=== PATIENT | female | born 1955 | race Caucasian/White ===

== ENCOUNTER 2016-11-15 10:12 | Day surgery (SDC) | payer MEDICARE, OTHER ==
[~2016-11-15] VITALS: Ht 170.2 cm; Wt 73.5 kg
[~2016-11-15 10:12] MED LIST: ATENOLOL50 MG PO; COZAAR100 MG PO; NORCO 325 MG-51 TAB; TEMAZEPAM15 MG PO; ZITHROMAX 250M250 MG PO
[2016-11-15 11:50] VITALS: BP 126/59; PULSE 63; TEMP 97.8
[2016-11-15] MEDS ORDERED: PLAVIX 75MG TAB75 MG PO (12:01)
[2016-11-15] MEDS ORDERED: ASPIRIN E.C. 8181 MG PO (12:01)
[2016-11-15] MEDS ORDERED: STIOLTO RESPIMAT4 GM IH (12:02)
[2016-11-15] MEDS ORDERED: VALIUM 10MG10 MG/TAB PO (12:04)
[2016-11-15] MEDS ORDERED: ZOLOFT 100MG100 MG PO (12:06)
[2016-11-15] MEDS ORDERED: TENORMIN100 MG PO (12:06)
[2016-11-15] MEDS ORDERED: NORCO 325 MG-101 TAB PO (12:07)
[2016-11-15] MEDS ORDERED: NORVASC 10MG10 MG PO (12:08)
[2016-11-15 14:40] VITALS: BP 114/62; PULSE 73; TEMP 98.4
[2016-11-15 14:55] VITALS: BP 121/65; PULSE 70
[2016-11-15 15:10] VITALS: BP 111/59; PULSE 73
[2016-11-15] MEDS ORDERED: PHENERGAN 25 TA25 MG PO (15:20)
[2016-11-15] MEDS ORDERED: CEPHALEXIN500 M1 PO (15:21)
[2016-11-15] MEDS ORDERED: NORCO 325 MG-7.1 TAB PO (15:21)
[2016-11-15 15:25] VITALS: BP 115/56; PULSE 71
[2016-11-15 15:55] VITALS: BP 119/71; PULSE 71
== END 2016-11-15 16:30 | disposition home or self-care (01) ==
LOC: SDCO 10:12
DX: S83.281A Other tear of lateral meniscus, current injury, right knee, initial encounter (principal); M94.261 Chondromalacia, right knee; M17.12 Unilateral primary osteoarthritis, left knee; J44.9 Chronic obstructive pulmonary disease, unspecified; I10 Essential (primary) hypertension; Z86.19 Personal history of other infectious and parasitic diseases; F17.200 Nicotine dependence, unspecified, uncomplicated; Z79.82 Long term (current) use of aspirin; Z79.899 Other long term (current) drug therapy; Z79.02 Long term (current) use of antithrombotics/antiplatelets
CPT/HCPCS: J0171; J0360; J0690; J1100; J1885; J2405; J2704; J3010; J7120

== ENCOUNTER → 2017-03-06 | Outpatient (CLI) | payer MEDICARE, OTHER ==
[~2017-03-06] MED LIST changes: +ASPIRIN E.C. 8181 MG PO; +CEPHALEXIN500 M1 PO; +CYMBALTA 30MG30 MG PO; +NORCO 325 MG-101 TAB PO; +NORCO 325 MG-7.1 TAB PO; +NORVASC 10MG10 MG PO; +PHENERGAN 25 TA25 MG PO; +PLAVIX 75MG TAB75 MG PO; +STIOLTO RESPIMAT4 GM IH; +TENORMIN100 MG PO; +VALIUM 10MG10 MG/TAB PO; +ZOLOFT 100MG100 MG PO
== END ==
LOC: MC.RAD 09:26
DX: Z12.31 Encounter for screening mammogram for malignant neoplasm of breast (principal)

== ENCOUNTER 2017-03-11 15:11 | Emergency (ER) | payer MEDICARE, OTHER ==
[~2017-03-11] VITALS: Ht 167.6 cm; Wt 72.7 kg
[~2017-03-11 15:11] MED LIST changes: -CYMBALTA 30MG30 MG PO
[2017-03-11 15:14] VITALS: TEMP 98
[2017-03-11] MEDS ORDERED: NORCO 325 MG-101 TAB PO (15:39)
[2017-03-11] MEDS ORDERED: CYMBALTA 30MG30 MG PO (15:41)
[2017-03-11 15:54] LABS: BASO % 0.6 % (0.0-2.0); CALCIUM 9.4 mg/dL (8.4-10.2); CREATININE, serum 0.67 mg/dL (0.52-1.25); EOS # 0.1 (0.0-0.7); EOS % 1.2 % (0-4.0); GRAN # 3.6 (1.4-6.5); GRAN % 54.9 % (42.2-75.2); LYMPH # 2.1 (1.2-3.4); LYMPH % 31.9 % (20.0-51.0); MEAN CELL VOLUME 89 fl (80.0-100.0); MEAN CORPUSCULAR HGB CONC 33 g/dl (33.0-37.0); MEAN PLATELET VOLUME 9.2 fl (7.4-10.4); MONO # 0.7 (0.1-0.6); MONO % 11.1 % (1.7-9.3); PLATELET COUNT 167 K/mm3 (130-400); POTASSIUM 4.4 mmol/L (3.4-5.0); RED BLOOD COUNT 3.51 M/mm3 (4.10-5.30); REDCELL DISTRIBUTION WIDTH-CV 14.7 % (11.5-14.5); WHITE BLOOD COUNT 6.6 K/mm3 (4.8-10.8)
[2017-03-11 15:59] LABS: HEMATOCRIT 31.1 % (37.0-47.0); HEMOGLOBIN 10.3 g/dl (12.5-16.0); MEAN CORPUSCULAR HEMOGLOBIN 29 pg (27.0-31.0)
[2017-03-11 18:32] VITALS: BP 117/52; PULSE 65
== END 2017-03-11 18:31 | disposition home or self-care (01) ==
LOC: COL.ER 15:11
PROVIDERS: Emergency Medicine
DX: I73.9 Peripheral vascular disease, unspecified (principal); E87.1 Hypo-osmolality and hyponatremia; I10 Essential (primary) hypertension; F17.210 Nicotine dependence, cigarettes, uncomplicated; Z95.820 Peripheral vascular angioplasty status with implants and grafts

== ENCOUNTER → 2017-08-07 | Outpatient (CLI) | payer MEDICARE, OTHER ==
[~2017-08-07] MED LIST changes: +CYMBALTA 30MG30 MG PO
== END ==
LOC: COL.RAD 13:15
DX: M47.815 Spondylosis without myelopathy or radiculopathy, thoracolumbar region (principal); Q76.49 Other congenital malformations of spine, not associated with scoliosis; M51.26 Other intervertebral disc displacement, lumbar region